=== PATIENT | male | born 1990 | race Caucasian/White ===

== ENCOUNTER 2017-10-26 17:56 | Emergency (ER) | payer OTHER ==
[~2017-10-26] VITALS: Ht 180.3 cm; Wt 104.5 kg
[2017-10-26 18:03] VITALS: BP 152/92
== END 2017-10-26 19:12 | disposition home or self-care (01) ==
LOC: EMS 17:57
DX: S80.861A Insect bite (nonvenomous), right lower leg, initial encounter (principal); T63.301A Toxic effect of unspecified spider venom, accidental (unintentional), initial encounter; Y92.89 Other specified places as the place of occurrence of the external cause
CPT/HCPCS: 99283

== ENCOUNTER 2019-03-07 12:45 | Emergency (ER) | payer SELFPAY ==
[~2019-03-07] VITALS: Ht 182.9 cm; Wt 109.1 kg
[2019-03-07] MEDS ORDERED: DiphenhydrAMINE HCL 50 MG/ML VIAL IM ONE (13:15)
[2019-03-07] MEDS ORDERED: FAMOTIDINE 20 MG TABLET PO ONE (13:15)
[2019-03-07] MEDS ORDERED: PredniSONE 20 MG TABLET PO ONE (13:15)
[2019-03-07 15:29] VITALS: BP 126/84
== END 2019-03-07 15:35 | disposition home or self-care (01) ==
LOC: EMS 12:48
DX: T78.40XA Allergy, unspecified, initial encounter (principal); F14.90 Cocaine use, unspecified, uncomplicated; F17.210 Nicotine dependence, cigarettes, uncomplicated; Z88.8 Allergy status to other drugs, medicaments and biological substances; X58.XXXA Exposure to other specified factors, initial encounter
CPT/HCPCS: 96372; 99283; 99406; J1200; J7512

== ENCOUNTER 2019-07-02 01:37 | Emergency (ER) | payer SELFPAY ==
[~2019-07-02] VITALS: Ht 182.9 cm; Wt 113.6 kg
[2019-07-02] MEDS ORDERED: IBUP-2271 PO (01:42)
[2019-07-02] MEDS ORDERED: BUPIVACAINE/EPI/PF 0.5% 30 ML VIAL INJ ONE (04:00)
[2019-07-02 04:20] VITALS: BP 148/92
== END 2019-07-02 04:38 | disposition home or self-care (01) ==
LOC: EMS 01:37
DX: K08.89 Other specified disorders of teeth and supporting structures (principal); R03.0 Elevated blood-pressure reading, without diagnosis of hypertension; F17.210 Nicotine dependence, cigarettes, uncomplicated; F11.90 Opioid use, unspecified, uncomplicated
CPT/HCPCS: 64400; 99284; 99406; J3490; 64450

== ENCOUNTER 2020-01-31 10:35 | Emergency (ER) | payer SELFPAY ==
[~2020-01-31] VITALS: Ht 180.3 cm; Wt 106.8 kg
[~2020-01-31 10:35] MED LIST: IBUP-2271 PO
[2020-01-31] MEDS ORDERED: PERTUSS(ACELL),DIPH,TET VAC/PF 0.5 ML VIAL IM ONE (11:00)
[2020-01-31] MEDS ORDERED: BACITRACIN 0.9 GM PACKET OINTMENT TP ONE (11:00)
[2020-01-31] MEDS ORDERED: LIDOCAINE/PF 1% 5 ML VIAL INJ ONE (11:00)
[2020-01-31 11:31] VITALS: BP 126/78
== END 2020-01-31 11:31 | disposition home or self-care (01) ==
LOC: EMS 10:40
DX: S61.411A Laceration without foreign body of right hand, initial encounter (principal); F17.210 Nicotine dependence, cigarettes, uncomplicated; F14.90 Cocaine use, unspecified, uncomplicated; Z88.0 Allergy status to penicillin; W26.0XXA Contact with knife, initial encounter; Y93.89 Activity, other specified; Y92.89 Other specified places as the place of occurrence of the external cause; Y99.8 Other external cause status
CPT/HCPCS: 12002; 90471; 90715; 99283; 99406; J2001